=== PATIENT | female | born 1965 | race Caucasian/White ===

== ENCOUNTER 2023-11-26 17:59 | Inpatient (IN) | payer OTHER ==
[~2023-11-26] VITALS: Ht 160 cm; Wt 94.3 kg
[2023-11-26 18:07] VITALS: BP_SYST 141; PULSE 85; RESP 22; TEMP 98.3; O2SAT 98
[2023-11-26 19:39] LABS: BASOPHILS % (AUTO) 0.4 % (0.0-2.0); EOSINOPHILS % (AUTO) 0.3 % (0.0-4.0); HEMATOCRIT 39.8 % (36-48); HEMOGLOBIN 13.7 g/dL (12.0-16.0); LYMPHOCYTES # (AUTO) 3.3 K/uL (1.0-5.5); LYMPHOCYTES % (AUTO) 33.6 % (20.5-51.5); MEAN CORPUSCULAR HEMOGLOBIN 32 pg (27-31); MEAN CORPUSCULAR HGB CONC 34 % (32-36); MEAN CORPUSCULAR VOLUME 94 fL (79.0-98.0); MONOCYTES # (AUTO) 0.7 K/uL (0.0-1.0); MONOCYTES % (AUTO) 6.8 % (1.7-9.3); NEUTROPHILS # (AUTO) 5.8 K/uL (1.8-7.7); NEUTROPHILS % (AUTO) 58.9 % (40.0-70.0); PLATELET COUNT (AUTO) 197 K/uL (130-430); RED BLOOD CELL COUNT(AUTO) 4.24 MIL/uL (4.2-6.2); WHITE BLOOD COUNT (AUTO) 9.8 K/uL (4.8-10.8)
[2023-11-26 20:00] LABS: ALBUMIN 3.9 g/dL (3.4-4.8); CALCIUM 9.3 mg/dL (8.4-11.0); CREATININE 0.93 mg/dL (0.55-1.30); POTASSIUM 3.4 mmol/L (3.5-5.1); TOTAL BILIRUBIN 0.7 mg/dL (0.0-1.0); TOTAL PROTEIN, SERUM 7.2 g/dL (6.4-8.3)
[2023-11-26 20:04] LABS: BILIRUBIN,DIRECT 0.2 mg/dL (0.0-0.3)
[2023-11-26] MEDS: NACL 0.9% 1,000 ML IV ONE (20:38)
[2023-11-26] MEDS: KETOROLAC TROMETHAMINE 30 MG VIAL IVP ONE (20:40)
[2023-11-26 23:14] LABS: BILIRUBIN,URINE 1+ (NEGATIVE); BLOOD, URINE 3+ (NEGATIVE); CLARITY/URINE CLOUDY (CLEAR); COLOR,URINE YELLOW (YELLOW); GLUCOSE,URINE NEGATIVE (NEGATIVE); KETONES,URINE NEGATIVE (NEGATIVE); LEUKOCYTE ESTERASE ,URINE NEGATIVE (NEGATIVE); NITRITE, URINE NEGATIVE (NEGATIVE); PH,URINE 5.5 (5.0-8.0); PROTEIN URINE 1+ (NEGATIVE); UROBILINOGEN,URINE 0.2 (0.2-1.0)
[2023-11-26] MEDS: MORPHINE 4 MG INJ. 4 MG/ML VIAL IVP ONE (23:16)
[2023-11-26 23:26] LABS: BACTERIA,URINE FEW /HPF (None Seen); RBC,URINE >100 /HPF (0-3)
[2023-11-26 23:27] LABS: CALCIUM OXALATE CRYSTALS,UR 0-10 /HPF (None Seen); FINE GRANULAR CASTS,URINE 0-10 /LPF (None Seen); MUCUS,URINE 2+ /LPF (None Seen)
[2023-11-27] VITALS (8 sets, daily range): BP systolic 96–127; PULSE 57–67; RESP 16–18; TEMP 97.5–98.3; O2SAT 94–98
[2023-11-27] MEDS: MORPHINE 4 MG INJ. 4 MG/ML VIAL IVP ONE (01:50)
[2023-11-27] MEDS ORDERED: MORPHINE 2 MG/ML INJ. SYRINGE IVP PRN (03:15)
[2023-11-27] MEDS ORDERED: MORPHINE 4 MG INJ. 4 MG/ML VIAL IVP PRN (03:15)
[2023-11-27] MEDS: KETOROLAC TROMETHAMINE 30 MG VIAL IVP SCH (03:41)
[2023-11-27] MEDS: D5/0.45 NS 1,000 ML IV SCH (03:43)
[2023-11-27] MEDS: TAMSULOSIN HCL 0.4 MG CAP PO SCH (08:51)
[2023-11-27] MEDS ORDERED: HYDROcodone/ACETAMIN 5-325 MG TAB (NORCO/ VICODIN) PO PRN (10:45)
[2023-11-27] MEDS ORDERED: ONDANSETRON HCL 4 MG/2 ML VIAL IVP PRN (10:45)
[2023-11-27] MEDS ORDERED: cefTRIAXone 1 GM IVPB PREMIX 50 ML IV SCH (10:45)
[2023-11-27] MEDS ORDERED: KETOROLAC TROMETHAMINE 30 MG VIAL IVP PRN (10:45)
[2023-11-27] MEDS ORDERED: ACETAMINOPHEN 325 MG TABLET PO PRN ×2 (10:45→11:00)
[2023-11-27] MEDS ORDERED: NALOXONE HCL 0.4 MG/ML AMP (NARCAN) IVP PRN ×2 (10:45)
[2023-11-27] MEDS ORDERED: LORazepam 2 MG/ML VIAL IVP PRN (10:45)
[2023-11-27] MEDS: HYDROcodone/ACETAMIN 10-325 MG TAB PO PRN (15:48)
[2023-11-27] MEDS: CEFTRIAXONE SOD 1 GM/ D5W 50 ML IV SCH (17:25)
[2023-11-28] VITALS: BP_SYST 93; PULSE 70; RESP 18; TEMP 98.5; O2SAT 94
[2023-11-28 05:10] LABS: BASOPHILS % (AUTO) 0.5 % (0.0-2.0); EOSINOPHILS # (AUTO) 0.1 K/uL (0.0-0.4); EOSINOPHILS % (AUTO) 1.5 % (0.0-4.0); HEMATOCRIT 35.9 % (36-48); HEMOGLOBIN 12.1 g/dL (12.0-16.0); LYMPHOCYTES # (AUTO) 2.9 K/uL (1.0-5.5); LYMPHOCYTES % (AUTO) 43.5 % (20.5-51.5); MEAN CORPUSCULAR HEMOGLOBIN 32 pg (27-31); MEAN CORPUSCULAR HGB CONC 34 % (32-36); MEAN CORPUSCULAR VOLUME 95 fL (79.0-98.0); MONOCYTES # (AUTO) 0.6 K/uL (0.0-1.0); MONOCYTES % (AUTO) 8.5 % (1.7-9.3); PLATELET COUNT (AUTO) 165 K/uL (130-430); RED BLOOD CELL COUNT(AUTO) 3.77 MIL/uL (4.2-6.2); RED CELL DISTRIBUTION WIDTH 14.1 % (9.0-15.0); WHITE BLOOD COUNT (AUTO) 6.6 K/uL (4.8-10.8)
[2023-11-28 05:40] LABS: CALCIUM 8.3 mg/dL (8.4-11.0); CREATININE 0.97 mg/dL (0.55-1.30); POTASSIUM 3.3 mmol/L (3.5-5.1)
[2023-11-28 08:00] VITALS: BP_SYST 109; PULSE 62; RESP 16; TEMP 98.1; O2SAT 95
[2023-11-28] MEDS ORDERED: CIPR500T5 PO (09:59)
[2023-11-28] MEDS ORDERED: TAMS0.4C96 PO (09:59)
[2023-11-28] MEDS: POTASSIUM CHLORIDE 20 MEQ TABLET.ER PO ONE (10:55)
[2023-11-28 12:00] VITALS: BP_SYST 121; PULSE 79; RESP 18; TEMP 98.6; O2SAT 97
[2023-11-28 14:24] VITALS: BP_SYST 108; PULSE 66; RESP 14; TEMP 97.9; O2SAT 96
[2023-11-28 15:00] VITALS: BP_SYST 121; PULSE 79; RESP 18; TEMP 98.1; O2SAT 98
== END 2023-11-28 15:55 | disposition home or self-care (01) | DRG 465 ==
LOC: SED 17:59 → SMU 11-27 03:05
PROVIDERS: ADMIT Preventive Medicine Preventive Medicine/Occupational Environmental Medicine; ATTEND Preventive Medicine Preventive Medicine/Occupational Environmental Medicine
DX: N13.2 Hydronephrosis with renal and ureteral calculous obstruction (principal); E83.51 Hypocalcemia; E87.6 Hypokalemia
CPT/HCPCS: 36415; 74018; 80048; 80076; 81000; 81001; 81015; 85025; 96375; 99285; J0696; J1885; J2270; J7060